=== PATIENT | male | born 1965 | race Caucasian/White ===

== ENCOUNTER → 2018-07-23 08:36 | Outpatient (CLI) | payer OTHER, SELFPAY ==
[2018-07-23 10:12] LABS: Cholesterol 185 mg/dL (140-199); Glucose 101 mg/dL (70-100); HDL Cholesterol 34 mg/dL (40-60); LDL Cholesterol Calculated 110 mg/dL (<100); Triglycerides 206 mg/dL (35-150)
[2018-07-23 10:41] LABS: TSH w/ Reflex to FT4 2.27 uIU/mL (0.47-4.68)
[2018-07-26 22:07] LABS: Testosterone Free 38.9 pg/mL (35.0-155.0); Testosterone Total 217 ng/dL (250-1100)
== END ==
PROVIDERS: PCP Family Medicine; Visit Provider Family Medicine
DX: Z13.1 Encounter for screening for diabetes mellitus (principal); N52.9 Male erectile dysfunction, unspecified; Z13.220 Encounter for screening for lipoid disorders
CPT/HCPCS: 36415; 80061; 82947; 84402; 84403; 84443

== ENCOUNTER → 2018-09-06 17:57 | Outpatient (CLI) | payer OTHER, SELFPAY ==
[2018-09-06 20:05] LABS: Urine N gonorrhoeae NOT DETECTED
[2018-09-06 20:10] LABS: Urine Chlamydia NOT DETECTED
== END ==
PROVIDERS: PCP Family Medicine; Visit Provider Physician Assistant
DX: R30.0 Dysuria (principal)
CPT/HCPCS: 87086; 87491; 87591

== ENCOUNTER → 2018-09-07 07:58 | Outpatient (CLI) | payer OTHER, SELFPAY ==
[2018-09-07 08:04] LABS: Bacteria Urine None Seen; RBC Urine None Seen (0-5/HPF); WBC Urine None Seen (0-5/HPF)
[2018-09-07 08:21] LABS: Urine Comments Microscopic Normal
[2018-09-07 08:22] LABS: Culture Indicated Urine Cult Not Indicated
== END ==
PROVIDERS: PCP Family Medicine; Visit Provider Physician Assistant
DX: R30.0 Dysuria (principal)
CPT/HCPCS: 81015

== ENCOUNTER → 2018-09-08 08:49 | Outpatient (CLI) | payer OTHER, SELFPAY ==
[2018-09-08 09:10] LABS: Add Manual Diff / Slide Review NO; Basophils Percent Auto 0.8 % (0-2); Eosinophils Percent Auto 1.1 % (2-4); Hematocrit 45.9 % (41-53); Lymphocytes Percent Auto 33.1 % (25-40); Mean Corpuscular HGB Conc 34.8 % (30-36); Mean Corpuscular Hemoglobin 30.9 PG (26-34); Mean Corpuscular Volume 88.6 fL (80-100); Monocytes Percent Auto 9.3 % (3-14); Neutrophils Absolute Auto 2700 /uL (3000-5900); Neutrophils Percent Auto 55.7 % (50-75); Platelet Count 210 X10^3/uL (150-400); Red Blood Cell Count 5.17 X10^6/uL (4.5-5.9); Red Cell Distribution Width 12.5 % (11.6-14.8); White Blood Cell Count 4.9 X10^3/uL (4.5-11.0)
[2018-09-08 09:28] LABS: BUN Creatinine Ratio 18.8 (6-22); Blood Urea Nitrogen 15 mg/dL (9-20); Calcium 9.1 mg/dL (8.4-10.2); Carbon Dioxide 32 mmol/L (22-32); Chloride 103 mmol/L (98-107); Estimated Glomerular Filt Rate > 60.0 mL/min (>60); Glucose 101 mg/dL (70-100); HEMOLYSIS < 15 (0-50); Potassium 4.3 mmol/L (3.4-5.1); Sodium 143 mmol/L (137-145)
[2018-09-08 09:57] LABS: Prostate Specific Antigen Scrn 0.423 ng/mL (0.1-4.0)
== END ==
PROVIDERS: PCP Student in an Organized Health Care Education/Training Program; Visit Provider Physician Assistant
DX: R30.0 Dysuria (principal)
CPT/HCPCS: 36415; 80048; 85025; G0103

== ENCOUNTER 2018-09-14 17:43 | Emergency (ER) | payer OTHER, SELFPAY ==
[2018-09-14 17:49] VITALS: BP 171/112; PULSE 98; RESP 20; TEMP 36.7; O2SAT 99; BMI 30.3
== END 2018-09-14 21:25 | disposition left against medical advice (07) ==
PROVIDERS: Family Provider Student in an Organized Health Care Education/Training Program; PCP Student in an Organized Health Care Education/Training Program
DX: M54.9 Dorsalgia, unspecified (principal)
CPT/HCPCS: 99281; 99282

== ENCOUNTER 2018-09-15 07:14 | Emergency (ER) | payer OTHER, SELFPAY ==
[2018-09-15 07:27] VITALS: BP 172/117; PULSE 103; RESP 18; TEMP 36.9; O2SAT 100; BMI 30.3
--- NOTE | 2018-09-15 07:31 | ED.BACK ---
HPI - Back Pain/Injury General Chief Complaint: Back Pain/Injury Stated Complaint: low back/tailbone pain x2 days Time Seen by Provider: 09/15/18 07:26 Source: patient Mode of arrival: ambulatory Limitations: no limitations History of Present Illness HPI Narrative: 53-year-old who back on the 23 of August which was approximately 1 month ago had a fall where he fell backwards and landed on a Pallet of pockets. He states that afterwards he was able to get up and walk around. Had minimal back pain. He states that approximately 1 week after that he started having dysuria. Pain at the tip of his penis. Pain with urination. Feeling like he was unable to empty his bladder. He states that he also started to have left lower back pain which he stated was secondary to his urinary symptoms. He also states that he has left greater than right however bilateral lower extremity numbness down to his feet. He also states that he feels like his testicles are numb and also the tip of his penis is numb. He also states he has numbness around his anus. When several times to the walk-in clinic for concerns of this dysuria. He has urine sample which was obtained which was unremarkable. He was also tested for gonorrhea and chlamydia. He states that he had a prostate exam and was reported that was normal. He states that he was given a prescription for Flomax however did not take it because of the side effect profile. He states that he is on Stacia palmetto and also cranberry extract he states that for the past 1-2 days his dysuria has greatly improved and he now feels like he can't empty his bladder. No fevers. He states that now that his urinary symptoms have somewhat improved he started to notice the pain in his lower back. Related Data Home Medications Medication Instructions Recorded Confirmed aspirin #0 02/15/18 09/08/18 Adrenal Health PO 07/19/18 09/08/18 Previous Rx's Medication Instructions Recorded tamsulosin 0.4 mg capsule 0.4 mg PO DAILY #30 cap 09/08/18 Allergies Allergy/AdvReac Type Severity Reaction Status Date / Time Penicillins [PENICILLINS] Allergy Unknown Verified 09/08/18 08:16 Review of Systems Constitutional Denies fatigue, Denies fever(s) and Denies headache(s) ENT Ears, Nose, Mouth, and Throat: Denies headache(s) Cardiovascular Denies chest pain and Denies dyspnea Respiratory Denies dyspnea Gastrointestinal Gastrointestinal: Denies abdominal pain, Denies constipation, Denies nausea and Denies vomiting Genitourinary Reports difficulty urinating, Reports dysuria, Denies flank pain, Denies scrotal swelling, Denies urinary frequency, Reports urinary hesitancy and Denies urinary incontinence Comments: Numbness around his genitals Musculoskeletal Denies abnormal gait, Reports back pain, Denies myalgias, Denies arthralgias, Reports numbness and Reports radiating pain into limb ( left greater than right) Integumentary/Breasts Denies lesions and Denies rash Neurologic Denies abnormal gait, Denies headache(s) and Reports numbness Endocrine Denies fatigue Hematologic/Lymphatic Denies easy bleeding and Denies easy bruising [facility] Medical History Erectile dysfunction (Chronic) Bilateral hearing loss (Chronic 2002) Decreased lung capacity (Chronic Unknown) Chicken pox (Inactive ~1970) Hearing loss (Inactive) Measles (Inactive ~1969) Mumps (Inactive ~1970) Surgical History History of placement of ear tubes (Resolved 1969) H/O adenoidectomy (Inactive ~1970) History of tonsillectomy (Inactive ~1969) Family History Father Hyperlipidemia Hypertension Mother Hyperlipidemia Social History Smoking Status: Former smoker Exam Initial Vital Signs Initial Vital Signs: Vital Signs Temperature 98.5 F 09/15/18 07:27 Pulse Rate 103 H 09/15/18 07:27 Respiratory Rate 18 09/15/18 07:27 Blood Pressure 172/117 H 09/15/18 07:27 Pulse Oximetry 100 09/15/18 07:27 Const General: cooperative, healthy appearing, comfortable, well developed, well groomed and No acute distress Orientation: alert, awake and oriented x3 HENMT Head: normal to inspection and normocephalic Chest Chest: normal inspection of the chest Breast inspection: normal inspection of the breasts Resp Effort & Inspection: normal respiratory effort Auscultation: clear to auscultation bilaterally Cardio Rate: tachycardic Rhythm: regular rhythm Pulses: radial pulses present and dorsalis pedis present GI Inspection: non-distended Palpation: soft, No firm and No tender Penis: other ( uncircumcised) Back/Spine/Pelvis Back: No CVA tenderness Skin Lesions: no lesions Rashes: no rashes Neuro General: alert, awake and oriented x3 Cognition: normal cognition Speech: speech normal Motor: muscle tone normal throughout Other: decreased sensation to light touch with left greater than right however bilateral to the bottoms of his feet Extrem General: capillary refill normal Psych Appearance: grossly normal and well kempt Course Orders Ordered: ED Orders 09/15/18 07:45 MR lumbar spine wo/w con Stat 09/15/18 08:00 Basic Metabolic Panel Stat Complete Blood Count AUTO DIFF Stat Discontinued Medications Sodium Chloride (Normal Saline 0.9%) 1,000 mls @ 1,000 mls/hr IV BOLUS ONE Stop: 09/15/18 08:44 Last Infusion: 09/15/18 09:25 Dose: 0 mls/hr Admin: 09/15/18 08:32 Dose: 1,000 mls/hr Vital Signs - 8 hr 09/15/18 07:27 09/15/18 09:23 09/15/18 09:49 Temperature 98.5 F Pulse Rate 103 H 87 93 H Respiratory Rate 18 14 14 Blood Pressure 172/117 H Blood Pressure [Left Arm] 152/88 H 144/97 H Pulse Oximetry 100 98 99 MDM - Back Pain/Injury Medical Records Attestation: I reviewed the patient's medical records. Lab Data Attestation: I reviewed the patient's lab results. Result diagrams: 09/15/18 08:00 09/15/18 08:00 Lab Results 09/15/18 09/15/18 Range/Units 08:00 08:00 WBC 5.3 (4.5-11.0) X10^3/uL RBC 5.13 (4.5-5.9) X10^6/uL Hgb 15.7 (13.5-17.5) g/dL Hct 44.7 (41-53) % MCV 87.2 (80-100) fL MCH 30.7 (26-34) PG MCHC 35.2 (30-36) % RDW 12.3 (11.6-14.8) % Plt Count 242 (150-400) X10^3/uL Neut % (Auto) 51.2 (50-75) % Lymph % (Auto) 37.7 (25-40) % [place] % (Auto) 9.0 (3-14) % Eos % (Auto) 1.3 L (2-4) % Baso % (Auto) 0.8 (0-2) % Neut # (Auto) 2700 L (4884-7296) /uL Sodium 141 (137-145) mmol/L Potassium 3.8 (3.4-5.1) mmol/L Chloride 104 (98-107) mmol/L Carbon Dioxide 28 (22-32) mmol/L BUN 17 (9-20) mg/dL Creatinine 0.80 (0.66-1.25) mg/dL Estimated GFR > 60.0 (>60) mL/min BUN/Creatinine Ratio 21.3 (6-22) Glucose 110 H (70-100) mg/dL Calcium 8.8 (8.4-10.2) mg/dL Imaging Data MRI - lumbar: Radiologist's impression: PROCEDURE: MR LUMBAR SPINE WO/W CON INDICATIONS: lower back pain concern for CA TECHNIQUE: Noncontrast sagittal T1 spin echo and T2 fast spin echo, sagittal STIR, axial T1 and T2 fast spin echo through the lumbar spine. In cases with scoliosis, additional coronal T2 fast spin echo may be performed. After the administration of contrast, sagittal and axial T1 spin echo with fat saturation through the lumbar spine. COMPARISON: None. FINDINGS: Image quality: Excellent. Alignment and curvature: There is trace L2-L3 and L3 on L4 retrolisthesis Marrow: Minimal reactive endplate changes noted adjacent to the L2-L3 disc. Small Schmorl's node noted in the inferior plate of the L3 vertebral body. No acute vertebral body compression fractures. No suspicious marrow enhancement. Spinal cord: Conus medullaris terminates at the L1 level. Visualized spinal cord demonstrates normal signal, without suspicious enhancement. Paraspinous soft tissues: No paravertebral masses or abnormal enhancement. L1-L2: Loss of disc signal and height. Mild, diffuse disc bulge. No central stenosis. No neural foraminal narrowing. No neural impingement. L2-L3: Loss of disc signal. Mild diffuse disc bulge. No central stenosis. No neural foraminal narrowing. No neural impingement. L3-L4: Loss of disc signal and slight loss of disc height. Mild, diffuse disc bulge with small central disc protrusion. Mild narrowing of the central canal. Mild bilateral neural foraminal narrowing. No neural impingement. L4-L5: Loss of disc signal and slight loss of disc height. Mild diffuse disc bulge. Mild narrowing of the central canal. Mild bilateral neural foraminal narrowing. No neural impingement. L5-S1: Loss of disc signal. Mild diffuse disc bulge. No central stenosis. No neural foraminal narrowing. No neural impingement. IMPRESSION: 1. Multilevel degenerative disc disease. 2. Mild L3-L4 and L4-L5 central canal narrowing. 3. Mild bilateral L3-L4 and L4-L5 neural foraminal narrowing. 4. No neural impingement. 5. No abnormal mass or suspicious postcontrast enhancement. Dictated by: Codi Zepeda MD, PhD on 09/15/2018 at 9:24 Approved by: Codi Zepeda MD, PhD on 09/15/2018 at 9:29 [facility] Narrative Medical decision making narrative: patient's MRI shows no signs of cauda equina. Does have multi lateral to degenerative disc disease. Had a urine checked just a couple days ago which was normal. Had GC and Chlamydia which was negative. Labs are unremarkable. I discussed all the symptoms with the patient. We did discuss anti-inflammatories for the likelihood that his symptoms are inflammation of the nerves in his lower back. Informed him he did need to follow up with his primary care doctor to discuss the indications for referral to see Urology. He was given return precautions. He expressed understanding and agreement with plan. Discharge Plan Departure Patient Disposition: Home Clinical Impression: Lumbar radiculopathy Instructions: Back Pain (Alternative Therapy), DI for Back Pain With Sciatica, Activity May Be Better then Rest for Low Back Pain Recovery Activity Restrictions/Additional Instructions: recommend that you continue with this Stacia palmetto like we discussed. I would also recommend that you start a anti-inflammatories such as Motrin or Naprosyn like we discussed. Call your primary care doctor for a follow-up. Return to the emergency department for any new or worsening symptoms Prescriptions: No Action Adrenal Health PO RF: 0 tamsulosin 0.4 mg capsule 0.4 mg PO DAILY Qty: 30 RF: 0 aspirin 325 MG tablet,delayed release (DR/EC) Qty: 0 RF: 0 Referrals: Mathew Carias MD [Primary Care Provider] - Stand Alone Forms: Work/School Restrictions
--- NOTE | 2018-09-15 07:45 | DI.MRI.S_ITS ---
PROCEDURE: MR LUMBAR SPINE WO/W CON INDICATIONS: lower back pain concern for CA TECHNIQUE: Noncontrast sagittal T1 spin echo and T2 fast spin echo, sagittal STIR, axial T1 and T2 fast spin echo through the lumbar spine. In cases with scoliosis, additional coronal T2 fast spin echo may be performed. After the administration of contrast, sagittal and axial T1 spin echo with fat saturation through the lumbar spine. COMPARISON: None. FINDINGS: Image quality: Excellent. Alignment and curvature: There is trace L2-L3 and L3 on L4 retrolisthesis Marrow: Minimal reactive endplate changes noted adjacent to the L2-L3 disc. Small Schmorl's node noted in the inferior plate of the L3 vertebral body. No acute vertebral body compression fractures. No suspicious marrow enhancement. Spinal cord: Conus medullaris terminates at the L1 level. Visualized spinal cord demonstrates normal signal, without suspicious enhancement. Paraspinous soft tissues: No paravertebral masses or abnormal enhancement. L1-L2: Loss of disc signal and height. Mild, diffuse disc bulge. No central stenosis. No neural foraminal narrowing. No neural impingement. L2-L3: Loss of disc signal. Mild diffuse disc bulge. No central stenosis. No neural foraminal narrowing. No neural impingement. L3-L4: Loss of disc signal and slight loss of disc height. Mild, diffuse disc bulge with small central disc protrusion. Mild narrowing of the central canal. Mild bilateral neural foraminal narrowing. No neural impingement. L4-L5: Loss of disc signal and slight loss of disc height. Mild diffuse disc bulge. Mild narrowing of the central canal. Mild bilateral neural foraminal narrowing. No neural impingement. L5-S1: Loss of disc signal. Mild diffuse disc bulge. No central stenosis. No neural foraminal narrowing. No neural impingement. IMPRESSION: 1. Multilevel degenerative disc disease. 2. Mild L3-L4 and L4-L5 central canal narrowing. 3. Mild bilateral L3-L4 and L4-L5 neural foraminal narrowing. 4. No neural impingement. 5. No abnormal mass or suspicious postcontrast enhancement. Dictated by: Codi Zepeda MD, PhD on 09/15/2018 at 9:24 Approved by: Codi Zepeda MD, PhD on 09/15/2018 at 9:29
[2018-09-15 08:10] LABS: Add Manual Diff / Slide Review NO; Basophils Percent Auto 0.8 % (0-2); Eosinophils Percent Auto 1.3 % (2-4); Hematocrit 44.7 % (41-53); Hemoglobin 15.7 g/dL (13.5-17.5); Lymphocytes Percent Auto 37.7 % (25-40); Mean Corpuscular HGB Conc 35.2 % (30-36); Mean Corpuscular Hemoglobin 30.7 PG (26-34); Mean Corpuscular Volume 87.2 fL (80-100); Neutrophils Absolute Auto 2700 /uL (3000-5900); Neutrophils Percent Auto 51.2 % (50-75); Platelet Count 242 X10^3/uL (150-400); Red Blood Cell Count 5.13 X10^6/uL (4.5-5.9); Red Cell Distribution Width 12.3 % (11.6-14.8); White Blood Cell Count 5.3 X10^3/uL (4.5-11.0)
[2018-09-15 08:28] LABS: BUN Creatinine Ratio 21.3 (6-22); Blood Urea Nitrogen 17 mg/dL (9-20); Calcium 8.8 mg/dL (8.4-10.2); Carbon Dioxide 28 mmol/L (22-32); Chloride 104 mmol/L (98-107); Estimated Glomerular Filt Rate > 60.0 mL/min (>60); Glucose 110 mg/dL (70-100); HEMOLYSIS < 15 (0-50); Potassium 3.8 mmol/L (3.4-5.1); Sodium 141 mmol/L (137-145)
[2018-09-15] MEDS: SODIUM CHLORIDE 0.9% 1,000 ML 1000 ML IV (08:32)
[2018-09-15 09:23] VITALS: BP 152/88; PULSE 87; RESP 14; O2SAT 98
[2018-09-15 09:49] VITALS: BP 144/97; PULSE 93; RESP 14; O2SAT 99
[2018-09-15 10:16] VITALS: BP 144/97; PULSE 89; RESP 20; O2SAT 99
== END 2018-09-15 10:17 | disposition home or self-care (01) ==
PROVIDERS: Emergency Provider Emergency Medicine; Family Provider Student in an Organized Health Care Education/Training Program; PCP Student in an Organized Health Care Education/Training Program
DX: M54.16 Radiculopathy, lumbar region (principal)
CPT/HCPCS: 36591; 72158; 80048; 85025; 96360; 99283; 99284; A9579

== ENCOUNTER → 2022-05-08 09:05 | Outpatient (CLI) | payer OTHER, SELFPAY ==
[2022-05-08 10:07] LABS: Add Manual Diff / Slide Review NO; Basophils Absolute Auto 0 /uL (0-100); Basophils Percent Auto 0.3 % (0-2); Eosinophils Absolute Auto 0 /uL (0-450); Eosinophils Percent Auto 0.9 % (2-4); Hematocrit 46.1 % (41-53); Hemoglobin 16.2 g/dL (13.5-17.5); Lymphocytes Absolute Auto 1900 /uL (1100-4500); Lymphocytes Percent Auto 35.7 % (25-40); Mean Corpuscular HGB Conc 35.2 % (30-36); Mean Corpuscular Hemoglobin 31.6 PG (26-34); Mean Corpuscular Volume 89.7 fL (80-100); Monocytes Absolute Auto 400 /uL (0-900); Monocytes Percent Auto 8.1 % (3-14); Neutrophils Absolute Auto 2900 /uL (1500-7000); Platelet Count 195 X10^3/uL (150-400); Red Blood Cell Count 5.13 X10^6/uL (4.5-5.9); Red Cell Distribution Width 13.5 % (11.6-14.8); White Blood Cell Count 5.2 X10^3/uL (4.5-11.0)
[2022-05-08 11:03] LABS: Estradiol, Total 55.5 pg/mL
[2022-05-15 08:20] LABS: Percent Free Testosterone 4.37 % (1.50-4.20); Testosterone Free 19.55 ng/dL (5.00-21.00); Testosterone Total 447.3 ng/dL (264.0-916.0)
== END ==
PROVIDERS: Family Provider Student in an Organized Health Care Education/Training Program; PCP Student in an Organized Health Care Education/Training Program; Referring Provider Nurse Practitioner Family; Visit Provider Nurse Practitioner Family
DX: E29.1 Testicular hypofunction (principal); R68.82 Decreased libido; R53.83 Other fatigue; N52.9 Male erectile dysfunction, unspecified; F41.9 Anxiety disorder, unspecified
CPT/HCPCS: 36415; 82670; 84402; 84403; 85025